=== PATIENT | female | born 1970 | race Caucasian/White ===

== ENCOUNTER → 2017-04-23 | Outpatient (CLI) | payer OTHER | LOC: BMCIMAGING 08:46 | PROVIDERS: ATTEND Obstetrics & Gynecology | DX: N93.9 Abnormal uterine and vaginal bleeding, unspecified (principal); N83.202 Unspecified ovarian cyst, left side ==

== ENCOUNTER → 2017-10-15 | Outpatient (CLI) | payer BC, OTHER | LOC: BMCIMAGING 12:44 | PROVIDERS: ATTEND Internal Medicine | DX: Z12.31 Encounter for screening mammogram for malignant neoplasm of breast (principal); Z80.3 Family history of malignant neoplasm of breast; Z09 Encounter for follow-up examination after completed treatment for conditions other than malignant neoplasm; Z87.42 Personal history of other diseases of the female genital tract ==

== ENCOUNTER → 2017-11-15 | Outpatient (CLI) | payer BC | LOC: BMCIMAGING 10:17 | PROVIDERS: ATTEND Internal Medicine | DX: R92.0 Mammographic microcalcification found on diagnostic imaging of breast (principal) ==